=== PATIENT | female | born 1940 | race Caucasian/White ===

== ENCOUNTER 2018-10-18 16:27 | Inpatient (IN) ==
[2018-10-18] MEDS ORDERED: CEFEPIME HCL 1 GM/100 ML BAG IV ONE ×2 (16:35→16:39)
[2018-10-18] MEDS ORDERED: ACETAMINOPHEN 325 MG TABLET PO ONE (16:39)
--- NOTE | 2018-10-18 16:44 | ERNOTE ---
ER Female HPI Date of Service: 10/18/18 Stated Complaint: sick Time Seen by Provider: 10/18/18 16:34 Source: patient, EMS Immunizations: IMMUNIZATION HX History of Influenza Vaccine No Hx Pneumococcal Vaccination No Allergies/Adverse Reactions: Allergies amoxicillin [Amoxicillin] Allergy (Verified 10/18/18 18:37) Itching rash estradiol [From Estraderm] Allergy (Verified 10/18/18 18:37) Hives rash levofloxacin [From Levaquin] Allergy (Verified 10/18/18 18:37) Itching ciprofloxacin [From Cipro] Adverse Reaction (Severe, Verified 10/18/18 18:37) Dilerium acute delirium ciprofloxacin HCl [From Cipro] Adverse Reaction (Severe, Verified 10/18/18 18:37) Delirium acute delirium oxycodone [Oxycodone] Adverse Reaction (Severe, Verified 10/18/18 18:37) Delerium acute delirium lisinopril Adverse Reaction (Verified 10/18/18 18:37) Cough cough Home Medications: HOME MEDICATIONS Aspirin [Aspirin Enteric Coated] 81 mg PO DAILY 07/21/13 [Last Taken Unknown] Furosemide [Lasix] 40 mg PO DAILY 10/29/17 [Last Taken Unknown] Losartan Potassium [Cozaar] 50 mg PO DAILY 10/29/17 [Last Taken Unknown] Potassium Chloride [Klor-Con 10] 30 meq PO DAILY 10/29/17 [Last Taken Unknown] metFORMIN HCL [Metformin HCl] 500 mg PO HS 10/29/17 [Last Taken Unknown] lancets 28 gauge See Dose Instructions .ROUTE .MEDSUPPLY #100 ea 04/20/18 [Last Taken Unknown] fluoxetine 40 mg capsule 40 mg PO DAILY #30 cap 06/01/18 [Last Taken Unknown] simvastatin 40 mg tablet 40 mg PO HS #90 tab 06/30/18 [Last Taken Unknown] meloxicam 15 mg tablet 15 mg PO DAILY #30 tab 07/10/18 [Last Taken Unknown] omeprazole 40 mg capsule,delayed release 40 mg PO DAILY #30 cap 07/10/18 [Last Taken Unknown] triamcinolone acetonide 0.5 % topical cream 1 applic TP BID #15 g 07/10/18 [Last Taken Unknown] zolpidem 10 mg tablet 10 mg PO HS #30 tab 07/29/18 [Last Taken Unknown] solifenacin 10 mg tablet 10 mg PO DAILY #30 tab 10/19/18 [Last Taken Unknown] - History of Present Illness Narrative: This patient is a 78-year-old female who is here with fever and urinary symptoms. She said that she has not felt like herself for the past 2 days. She has had pressure when she urinates. Her urine has been dark. She feels feverish and her temperature is 103.2 in the ambulance. Her said that she seemed disoriented. She was noted to be tachycardic. She is diabetic and her blood sugar was 187 in the annual. She denies cough or cold symptoms. She has no nausea. She vomited yesterday. She denies diarrhea. She has no rash. Review of Systems - Review of Systems Constitutional: Present: fever, chills, weakness, malaise EYE: Absent: vision changes ENT: Absent: ear pain, nose congestion, nasal drainage, sore throat Respiratory: Absent: shortness of breath, cough Cardiology: Absent: chest pain, palpitations, syncope Gastrointestinal/Abdominal: Present: vomiting. Absent: nausea, diarrhea, constipation, abdominal pain Genitourinary: Present: See HPI Musculoskeletal: Present: no symptoms reported Skin: Absent: rash Neurological: Absent: anxiety, depressed, headache, dizziness/light-headedness Endocrine: Present: other - She has diabetic Hematologic/Lymphatic: Present: other - No active bleeding Psych: Absent: anxiety, depressed Medical History (Last Reviewed 10/18/18 @ 16:43 by Arsen Leiva MD) CHF (congestive heart failure) Callus of foot Onset Date: ~02/04/18 Diabetes mellitus, type II Heart murmur Hyperlipidemia Hypertension Mitral and aortic regurgitation Onset Date: 06/2012 Obesity Renal insufficiency Skin lesion of left lower extremity Onset Date: ~02/04/18 Stress bladder incontinence, female Toenail deformity Onset Date: ~02/04/18 Ventricular hypertrophy Surgical History: Surgical History (Last Reviewed 10/18/18 @ 16:43 by Arsen Leiva MD) History of cataract surgery Onset Date: 2007 Right 11/2007 Left 10/2007 History of colonoscopy Onset Date: 11/17/17 History of knee replacement procedure of left knee Onset Date: 07/2013 Dr. Burris History of knee replacement procedure of right knee Onset Date: 2008 Dr. Ramirez History of ovarian cystectomy Onset Date: 1961 S/P tonsillectomy Onset Date: ~1946 Family History: Family History (Last Updated 10/18/18 @ 20:09 by Concetta Fontana RN) Father Cancer Lung Cancer Mother No known health problems Social History: Preferred Language Cypriot Do you have any roman catholic or No cultural preference? Smoking Status Never smoker Abuse History No History of abuse Psych History No pertinent hx Alcohol Use none Drug Use none (Last Updated 05/20/18 @ 13:31 by Concetta Vale DPM) No Social History Section defined Physical Exam - Physical Exam General Appearance: Present: wd/wn, alert, no apparent distress Head Exam: Present: normal inspection, no evidence of injury Eye Exam: Normal inspection: bilateral Ears, Nose, Throat: Present: normal ENT inspection, normal pharynx Neck: Present: normal inspection, nontender. Absent: lymphadenopathy (R), lymphadenopathy (L) Respiratory: Present: no respiratory distress, normal breath sounds, no accessory muscle use, lungs clear Cardiovascular/Chest: Present: no murmur, normal peripheral pulses, tachycardia Gastrointestinal/Abdominal: Present: normal bowel sounds, nondistended, soft, no organomegaly, tenderness - Mild suprapubic tenderness. Back Exam: Present: normal inspection, normal range of motion Extremity Exam: Present: normal inspection, non-tender, no edema Neurological Exam: Present: alert, oriented, normal mood/affect, no motor/sensory deficits Skin Exam: Present: normal color, warm/dry Progress - Date and Time Seen: Date and Time: 10/18/18 18:04 I reviewed the labs with the patient and her . I spoke with Dr. Meier, and will admit the patient. - Results and Orders Patient's Lab Results:: I have reviewed the patient's lab results. Results and Orders: Laboratory Tests 10/18/18 10/18/18 10/18/18 16:39 16:43 16:43 WBC 19.1 H Hgb 8.8 L Hct 29.3 L Plt Count 262 Immature Gran % (Auto) 1.00 H Neutrophils % 85.0 H Lymphocytes % 2.8 L Monocytes % 10.9 H Plasma Sodium 135 Potassium 3.5 Chloride 100 Carbon Dioxide 20.3 L Anion Gap 16.2 H BUN 16 Creatinine 1.26 Random Glucose 207 H Total Bilirubin 2.2 H AST 154 H ALT 188 H Alkaline Phosphatase 357 H Total Protein 6.0 L Albumin 2.4 L Urine Color Yellow Urine Appearance Slightly cloudy Urine pH 6.0 Ur Specific [place] 1.025 Urine Protein 100 H Urine Glucose (UA) Negative Urine Ketones Negative Urine Blood 150 H Urine Nitrate Negative Urine Bilirubin 1 H Urine Ictotest Positive H Prot Sulfosalicylic Acd 4+ H Urine Urobilinogen 8 H Ur Leukocyte Esterase 100 H Urine RBC 5-10 H Urine WBC >50 H Ur Epithelial Cells None seen Urine Bacteria 4+ H Urine Culture Comments Culture to follow - Vital Signs Patient's Vital Signs:: I have reviewed the patient's vital signs. Vital Signs: Vital Signs 10/18/18 16:27 Temperature 39.6 C H Pulse Rate 125 H Respiratory Rate 22 H Blood Pressure 150/81 H O2 Sat by Pulse Oximetry 95 - Progress/Reassessment Chief Complaint: Genitourinary Problem Departure Clinical Impression: Pyelonephritis, Elevated LFTs, Anemia - Departure Disposition: Still a patient Condition: Stable
[2018-10-18] MEDS: NORMAL SALINE 1,000 ML IV SCH ×3 (17:00→22:48)
[2018-10-18 17:01] LABS: Hematocrit 29.3 % (37.0-47.0); Hemoglobin 8.8 gm/dL (12.5-16.0); Mean Cell Volume 69.8 fl (78-100); Mean Platelet Volume 9.8 fl (8-12.5); Neutrophil # 16.2 K/mm3 (1.3-6.0); Platelet Count 262 K/mm3 (150-450); Red Cell Distribution Width 18.6 % (11.5-14.0); White Blood Count 19.1 K/mm3 (4.0-10.5)
[2018-10-18 17:04] LABS: Total Cells Counted 100
[2018-10-18 17:23] LABS: Albumin * 2.4 gm/dl (3.4-5.0); Anion Gap 16.2 mmol/L (6.8-13.8); BUN/Creatinine Ratio 12.7 (9.0-21.6); Bilirubin, Total 2.2 mg/dL (0.0-1.1); Ca. Corrected For Albumin 9.4 mg/dL (8.4-10.2); Calcium * 8.4 mg/dL (7.9-10.9); Carbon Dioxide 20.3 mmol/L (24-32.6); Potassium 3.5 mmol/L (3.4-4.6)
[2018-10-18 17:24] LABS: Anisocytosis 2+; Band 1 % (0-2.0); Lymphocyte 8 % (20-51); Monocyte 9 % (0-9); Neutrophil 82 % (42-75); Neutrophil # 15.7 K/mm3 (1.3-6.0); Platelet Estimate Normal (NORMAL)
[2018-10-18 17:26] LABS: Hypochromia 1+
[2018-10-18 17:28] LABS: Ovalocytes 1+
[2018-10-18 17:32] LABS: Urine Appearance Slightly Cloudy (CLEAR); Urine Bilirubin 1 mg/dl (NEGATIVE); Urine Blood 150 /ul (NEGATIVE); Urine Color Yellow; Urine Ketone Negative (NEGATIVE); Urine Protein 100 mg/dL (NEGATIVE); Urine Specific Gravity 1.025 SP.GR. (1.005-1.010)
[2018-10-18 17:33] LABS: Urine Bacteria 4+; Urine Nitrite Negative (NEGATIVE); Urine Urobilinogen 8 EU/dl (NORMAL); Urine WBC >50 /hpf (0-5)
[2018-10-18] MEDS ORDERED: CEFEPIME HCL 2 GM in DEXTROSE 5 % IN WATER 100 ML IV ONE ×2 (17:45)
[2018-10-18] MEDS: NORMAL SALINE 1,000 ML IV PRN (20:27)
[2018-10-18] MEDS ORDERED: ONDANSETRON 8 MG TAB.RAPDIS PO PRN (20:34)
--- NOTE | 2018-10-18 20:56 | HP ---
Chief Complaint - Chief Complaint Date of Service: 10/18/18 Time of Service: 19:45 Chief Complaint: Fever, dysuria, mental confusion. History of Present Illness: Barbie Burns is a 78-year-old female who presented to the emergency room after episode of confusion high fever of 103.8 and dysuria. Evaluation in emergency room reveals presence of a urinary tract infection, leukocytosis, and a predominance of neutrophils. Her liver enzymes are elevated. Cause is unknown. She is started on IV antibiotics and IV fluids of normal saline at 125 mL per hour continuous. She is in no distress at time of my exam. With rehydration and antipyretics her mental status has improved back to normal baseline. Medical History (Last Reviewed 10/18/18 @ 20:07 by Concetta Fontana RN) CHF (congestive heart failure) Callus of foot Onset Date: ~02/04/18 Diabetes mellitus, type II Heart murmur Hyperlipidemia Hypertension Mitral and aortic regurgitation Onset Date: 06/2012 Obesity Renal insufficiency Skin lesion of left lower extremity Onset Date: ~02/04/18 Stress bladder incontinence, female Toenail deformity Onset Date: ~02/04/18 Ventricular hypertrophy Surgical History: Surgical History (Last Reviewed 10/18/18 @ 20:07 by Concetta Fontana RN) History of cataract surgery Onset Date: 2007 Right 11/2007 Left 10/2007 History of colonoscopy Onset Date: 11/17/17 History of knee replacement procedure of left knee Onset Date: 07/2013 Dr. Burris History of knee replacement procedure of right knee Onset Date: 2008 Dr. Ramirez History of ovarian cystectomy Onset Date: 1961 S/P tonsillectomy Onset Date: ~1946 Family History: Family History (Last Updated 10/18/18 @ 20:09 by Concetta Fontana RN) Father Cancer Lung Cancer Mother No known health problems Social History: Patient Lives/Resources With Spouse Utilized Occupation retired Preferred Language Bulgarian Do you have any synagogue or No cultural preference? Smoking Status Never smoker Have you smoked in the past 12 No months Do you dip or chew tobacco No Abuse History No History of abuse Psych History No pertinent hx Alcohol Use none Drug Use none (Last Updated 05/20/18 @ 13:31 by Concetta Vale DPM) No Social History Section defined Review Of Systems (GEN) - Review of Systems Generalized/Overall Review: Present: Weakness EENTM: Present: No Symptoms Reported Respiratory: Present: No Symptoms Reported Cardiac: Present: No Symptoms Reported Abdominal: Present: Other - Suprapubic pressure and discomfort Genitourinary: Present: No Symptoms Reported, Urgency, Frequency, Dysuria Musculoskeletal: Present: No Symptoms Reported Neurological: Present: Other - Briefly confused today but improved with IV fluids and antipyretics. Skin: Present: No Symptoms Reported Endocrine: Present: No Symptoms Reported Misc: All systems neg except as marked Immunizations: IMMUNIZATION HX History of Influenza Vaccine No Hx Pneumococcal Vaccination No Allergies/Adverse Reactions: Allergies Allergy/AdvReac Type Severity Reaction Status Date / Time amoxicillin [Amoxicillin] Allergy Itching Verified 10/18/18 18:37 estradiol [From Estraderm] Allergy Hives Verified 10/18/18 18:37 levofloxacin [From Levaquin] Allergy Itching Verified 10/18/18 18:37 ciprofloxacin [From Cipro] AdvReac Severe Dilerium Verified 10/18/18 18:37 ciprofloxacin HCl AdvReac Severe Delirium Verified 10/18/18 18:37 [From Cipro] oxycodone [Oxycodone] AdvReac Severe Delerium Verified 10/18/18 18:37 lisinopril AdvReac Cough Verified 10/18/18 18:37 Home Medications: HOME MEDICATIONS Aspirin [Aspirin Enteric Coated] 81 mg PO DAILY 07/21/13 [Last Taken Unknown] Furosemide [Lasix] 40 mg PO DAILY 10/29/17 [Last Taken Unknown] Losartan Potassium [Cozaar] 50 mg PO DAILY 10/29/17 [Last Taken Unknown] Potassium Chloride [Klor-Con 10] 30 meq PO DAILY 10/29/17 [Last Taken Unknown] Solifenacin Succinate [Vesicare] 10 mg PO DAILY 10/29/17 [Last Taken Unknown] metFORMIN HCL [Metformin HCl] 500 mg PO HS 10/29/17 [Last Taken Unknown] lancets 28 gauge See Dose Instructions .ROUTE .MEDSUPPLY #100 ea 04/20/18 [Last Taken Unknown] fluoxetine 40 mg capsule 40 mg PO DAILY #30 cap 06/01/18 [Last Taken Unknown] simvastatin 40 mg tablet 40 mg PO HS #90 tab 06/30/18 [Last Taken Unknown] meloxicam 15 mg tablet 15 mg PO DAILY #30 tab 07/10/18 [Last Taken Unknown] omeprazole 40 mg capsule,delayed release 40 mg PO DAILY #30 cap 07/10/18 [Last Taken Unknown] triamcinolone acetonide 0.5 % topical cream 1 applic TP BID #15 g 07/10/18 [Last Taken Unknown] zolpidem 10 mg tablet 10 mg PO HS #30 tab 07/29/18 [Last Taken Unknown] Exam - Exam Vital Signs: Vital Signs - Last Taken Temp 37.3 C 10/18/18 19:41 Pulse 106 H 10/18/18 19:41 Resp 22 H 10/18/18 19:41 BP 130/47 10/18/18 19:41 Pulse Ox 92 L 10/18/18 19:41 Constitutional: Present: Alert, Oriented x3, Cooperative, Well developed, Well nourished, No distress ENT Exam: Present: normal ENT inspection, hearing grossly normal, pharynx normal, TMs normal Eye Exam: bilateral eye: normal inspection, PERRL, EOMI Neck: Present: non-tender Back Exam: Present: normal inspection Breasts: Present: Exam deferred Respiratory: Present: chest non-tender Cardiovascular/Chest: Present: normal peripheral pulses, regular rate, rhythm, no chest tenderness, no edema, no gallop, no JVD, no murmur, no rub Peripheral Pulses: carotid (R): 2+, carotid (L): 2+, radial (R): 2+, radial (L): 2+ Abdomen: Present: Normal bowel sounds, soft, nondistended, no rebound tende rness, suprapubic tenderness /Rectal: Present: Exam deferred Extremity: Present: normal range of motion, non-tender, normal inspection, no pedal edema, no calf tenderness, normal capillary refill Skin Exam: Present: normal color, warm/dry, no cyanosis Lymphatic: Present: no adenopathy Neurologic: Present: turkey cleaner II-XII nml as tested Appearance: Present: appropriate appearance Eye contact: Present: cooperative, good eye contact, normal speech Thoughts: Present: normal thought pattern, no apparent hallucination Diagnostic Studies: Abnormal Lab Results 10/18/18 10/18/18 10/18/18 Range/Units 16:39 16:43 16:43 WBC 19.1 H (4.0-10.5) K/mm3 Hgb 8.8 L (12.5-16.0) gm/dL Hct 29.3 L (37.0-47.0) % MCV 69.8 L (78-100) fl MCH 21.0 L (27-31) pg MCHC 30.0 L (32-36) g/dl RDW 18.6 H (11.5-14.0) % Immature Gran % (Auto) 1.00 H (0.001-0.429) % Immature Gran # (Auto) 0.20 H (0.000-0.0310) K/mm3 Neutrophils % 85.0 H (42-75.0) % Neutrophils % (Manual) 82 H (42-75) % Lymphocytes % 2.8 L (20-51) % Lymphocytes % (Manual) 8 L (20-51) % Monocytes % 10.9 H (0.0-9) % Neutrophils # 16.2 H (1.3-6.0) K/mm3 Neutrophils # (Manual) 15.7 H (1.3-6.0) K/mm3 Lymphocytes # 0.53 L (1.5-3.5) k/mm3 Monocytes # 2.1 H (0.0-1.0) k/mm3 Monocytes # (Manual) 1.7 H (0.0-1.0) k/mm3 Carbon Dioxide 20.3 L (24-32.6) mmol/L Anion Gap 16.2 H (6.8-13.8) mmol/L Est GFR (Non-Af Amer) 44 L (60-130) mL/min Random Glucose 207 H (70-110) mg/dL Total Bilirubin 2.2 H (0.0-1.1) mg/dL AST 154 H (0-48) U/L ALT 188 H (19-67) U/L Alkaline Phosphatase 357 H (50-170) U/L Total Protein 6.0 L (6.2-8.2) gm/dL Albumin 2.4 L (3.4-5.0) gm/dl Urine Protein 100 H (NEGATIVE) mg/dL Urine Blood 150 H (NEGATIVE) /ul Urine Bilirubin 1 H (NEGATIVE) mg/dl Urine Ictotest Positive H (NEGATIVE) Prot Sulfosalicylic Acd 4+ H (0) mg/dL Urine Urobilinogen 8 H (NORMAL) EU/dl Ur Leukocyte Esterase 100 H (NEGATIVE) /ul Urine RBC 5-10 H (0-5) /hpf Urine WBC >50 H (0-5) /hpf Urine Bacteria 4+ H (NONE) Laboratory Results WBC 19.1 K/mm3 (4.0-10.5) H 10/18/18 16:43 RBC 4.20 M/mm3 (4.2-5.4) 10/18/18 16:43 Hgb 8.8 gm/dL (12.5-16.0) L 10/18/18 16:43 Hct 29.3 % (37.0-47.0) L 10/18/18 16:43 MCV 69.8 fl (78-100) L 10/18/18 16:43 MCH 21.0 pg (27-31) L 10/18/18 16:43 MCHC 30.0 g/dl (32-36) L 10/18/18 16:43 RDW 18.6 % (11.5-14.0) H 10/18/18 16:43 Plt Count 262 K/mm3 (150-450) 10/18/18 16:43 MPV 9.8 fl (8-12.5) 10/18/18 16:43 Immature Gran % (Auto) 1.00 % (0.001-0.429) H 10/18/18 16:43 Immature Gran # (Auto) 0.20 K/mm3 (0.000-0.0310) H 10/18/18 16:43 Neutrophils % 85.0 % (42-75.0) H 10/18/18 16:43 Neutrophils % (Manual) 82 % (42-75) H 10/18/18 16:43 Band Neuts % (Manual) 1 % (0-2.0) 10/18/18 16:43 Lymphocytes % 2.8 % (20-51) L 10/18/18 16:43 Lymphocytes % (Manual) 8 % (20-51) L 10/18/18 16:43 Monocytes % 10.9 % (0.0-9) H 10/18/18 16:43 Monocytes % (Manual) 9 % (0-9) 10/18/18 16:43 Eosinophils % 0.0 % (0.0-3.0) 10/18/18 16:43 Basophils % 0.3 % (0.0-1.0) 10/18/18 16:43 Nucleated RBC % 0.0 k/mm3 (0-1) 10/18/18 16:43 Neutrophils # 16.2 K/mm3 (1.3-6.0) H 10/18/18 16:43 Neutrophils # (Manual) 15.7 K/mm3 (1.3-6.0) H 10/18/18 16:43 Lymphocytes # 0.53 k/mm3 (1.5-3.5) L 10/18/18 16:43 Lymphocytes # (Manual) 1.5 k/mm3 (1.5-3.5) 10/18/18 16:43 Monocytes # 2.1 k/mm3 (0.0-1.0) H 10/18/18 16:43 Monocytes # (Manual) 1.7 k/mm3 (0.0-1.0) H 10/18/18 16:43 Eosinophils # 0.0 k/mm3 (0.0-0.7) 10/18/18 16:43 Absolute Basophils 0.1 k/mm3 (0.0-0.1) 10/18/18 16:43 Platelet Estimate Normal (NORMAL) 10/18/18 16:43 Hypochromasia 1+ 10/18/18 16:43 Anisocytosis 2+ 10/18/18 16:43 Ovalocytes 1+ 10/18/18 16:43 Sodium 133 mmol/L (132-142) 10/18/18 16:43 Plasma Sodium 135 mmol/L (130-142) 10/18/18 16:43 Potassium 3.5 mmol/L (3.4-4.6) 10/18/18 16:43 Chloride 100 mmol/L (97-106) 10/18/18 16:43 Carbon Dioxide 20.3 mmol/L (24-32.6) L 10/18/18 16:43 Anion Gap 16.2 mmol/L (6.8-13.8) H 10/18/18 16:43 BUN 16 mg/dL (3-23) 10/18/18 16:43 Creatinine 1.26 mg/dL (0.4-1.4) 10/18/18 16:43 Est GFR (Non-Af Amer) 44 mL/min (60-130) L 10/18/18 16:43 BUN/Creatinine Ratio 12.7 (9.0-21.6) 10/18/18 16:43 Random Glucose 207 mg/dL (70-110) H 10/18/18 16:43 Lactic Acid, Venous 1.5 mmol/L (0.4-2.0) 10/18/18 16:43 Calcium 8.4 mg/dL (7.9-10.9) 10/18/18 16:43 Calcium Adj for Albumin 9.4 mg/dL (8.4-10.2) 10/18/18 16:43 Total Bilirubin 2.2 mg/dL (0.0-1.1) H 10/18/18 16:43 AST 154 U/L (0-48) H 10/18/18 16:43 ALT 188 U/L (19-67) H 10/18/18 16:43 Alkaline Phosphatase 357 U/L (50-170) H 10/18/18 16:43 Total Protein 6.0 gm/dL (6.2-8.2) L 10/18/18 16:43 Albumin 2.4 gm/dl (3.4-5.0) L 10/18/18 16:43 Urine Color Yellow 10/18/18 16:39 Urine Appearance Slightly cloudy (CLEAR) 10/18/18 16:39 Urine pH 6.0 pH (5.0-7.0) 10/18/18 16:39 Ur Specific [place] 1.025 SP.GR. (1.005-1.010) 10/18/18 16:39 Urine Protein 100 mg/dL (NEGATIVE) H 10/18/18 16:39 Urine Glucose (UA) Negative mg/dL (NEGATIVE) 10/18/18 16:39 Urine Ketones Negative mg/dL (NEGATIVE) 10/18/18 16:39 Urine Blood 150 /ul (NEGATIVE) H 10/18/18 16:39 Urine Nitrate Negative (NEGATIVE) 10/18/18 16:39 Urine Bilirubin 1 mg/dl (NEGATIVE) H 10/18/18 16:39 Urine Ictotest Positive (NEGATIVE) H 10/18/18 16:39 Prot Sulfosalicylic Acd 4+ mg/dL (0) H 10/18/18 16:39 Urine Urobilinogen 8 EU/dl (NORMAL) H 10/18/18 16:39 Ur Leukocyte Esterase 100 /ul (NEGATIVE) H 10/18/18 16:39 Urine RBC 5-10 /hpf (0-5) H 10/18/18 16:39 Urine WBC >50 /hpf (0-5) H 10/18/18 16:39 Ur Epithelial Cells None seen /hpf (0-5) 10/18/18 16:39 Urine Bacteria 4+ (NONE) H 10/18/18 16:39 Urine Culture Comments Culture to follow 10/18/18 16:39 Assessment/Plan - Narrative Narrative: 1. IV antibiotics 2. IV fluids 3. Antipyretics 4. Abdominal ultrasound tomorrow morning single organliver 5. Place on telemetry through the night 6. Had Tylenol and Zofran to her when necessary meds 7. I'll notify Dr. Africa Villarreal tomorrow morning of her admission. - Assessment/Plan (1) Pyelonephritis Problem: Acute (2) Altered mental status Problem: Resolved (3) Fever and chills Problem: Acute (4) Elevated LFTs Problem: Acute
[2018-10-18] MEDS: TRIAMCINOLONE ACETONIDE 15 APPL TUBE TP SCH (22:52)
[2018-10-18] MEDS: ZOLPIDEM TARTRATE 10 MG TABLET PO SCH (22:52)
[2018-10-19] MEDS: ACETAMINOPHEN 500 MG TABLET PO PRN ×4 (01:08→23:08)
[2018-10-19] MEDS ORDERED: FUROSEMIDE 10 MG/ML VIAL IV ONE (01:17)
[2018-10-19] MEDS: NORMAL SALINE 1,000 ML IV PRN (04:41)
[2018-10-19 05:51] LABS: Hematocrit 28.3 % (37.0-47.0); Hemoglobin 8.5 gm/dL (12.5-16.0); Mean Cell Volume 69.5 fl (78-100); Mean Corpuscular Hemoglobin 20.9 pg (27-31); Mean Platelet Volume 10.6 fl (8-12.5); Platelet Count 284 K/mm3 (150-450); Red Blood Count 4.07 M/mm3 (4.2-5.4); Red Cell Distribution Width 18.6 % (11.5-14.0); White Blood Count 18.9 K/mm3 (4.0-10.5)
[2018-10-19 06:00] LABS: Total Cells Counted 100
[2018-10-19 06:04] LABS: Albumin * 2.3 gm/dl (3.4-5.0); Anion Gap 15.2 mmol/L (6.8-13.8); BUN/Creatinine Ratio 11.6 (9.0-21.6); Bilirubin, Total 2.2 mg/dL (0.0-1.1); Ca. Corrected For Albumin 9.2 mg/dL (8.4-10.2); Calcium * 8.2 mg/dL (7.9-10.9); Carbon Dioxide 20.8 mmol/L (24-32.6); Total Protein 5.9 gm/dL (6.2-8.2)
[2018-10-19 06:21] LABS: Band 3 % (0-2.0); Hypochromia 1+; Lymphocyte 5 % (20-51); Microcytosis 1+; Monocyte 5 % (0-9); Neutrophil 87 % (42-75); Neutrophil # 16.4 K/mm3 (1.3-6.0); Platelet Estimate Normal (NORMAL)
[2018-10-19] MEDS ORDERED: OMEPRAZOLE 20 MG CAPSULE.SA PO SCH (07:00)
[2018-10-19] MEDS ORDERED: POTASSIUM CHLORIDE 10 MEQ in NORMAL SALINE 1,000 ML IV PRN ×2 (08:35→08:45)
[2018-10-19] MEDS: PANTOPRAZOLE SODIUM 40 MG TABLET.EC PO SCH (08:42)
[2018-10-19] MEDS: TRIAMCINOLONE ACETONIDE 15 APPL TUBE TP SCH ×2 (08:51→20:55)
[2018-10-19] MEDS: CEFEPIME HCL 1 GM in DEXTROSE 5 % IN WATER 100 ML IV SCH ×4 (09:51→20:57)
[2018-10-19] MEDS: FUROSEMIDE 40 MG TABLET PO SCH (09:54)
[2018-10-19] MEDS: LOSARTAN POTASSIUM 50 MG TABLET PO SCH (09:55)
[2018-10-19] MEDS: ASPIRIN 81 MG TABLET.DR PO SCH (09:55)
[2018-10-19] MEDS: POTASSIUM CHLORIDE 10 MEQ TABLET.SA PO SCH (09:55)
[2018-10-19] MEDS: FLUoxetine HCL 20 MG CAPSULE PO SCH (09:55)
[2018-10-19] MEDS: POTASSIUM CHLORIDE 10 MEQ in NORMAL SALINE 1,000 ML IV SCH ×2 (10:00→20:34)
[2018-10-19] MEDS: SOLIFENACIN SUCCINATE 10 MG TABLET PO SCH (10:06)
--- NOTE | 2018-10-19 10:58 | PN ---
Subjective - Date and Time Seen Date: 10/19/18 Time: 08:35 Subjective Narrative: Barbie Burns is a 78-year-old female admitted yesterday with pyelonephritis, abnormal elevated liver function tests, hyperpyrexia, and temporary altered mental status which improved with rehydration and reduced fever. She is afebrile this morning. She may be feeling some better. She denies flank pain but has some suprapubic pressure and discomfort. Her blood cultures have grown out a gram-negative bacillus and she is on cefepime. We'll await sensitivity before changing antibiotics. Her white count is 18,900 which is only down from 19,100 on admission. The differential is essentially unchanged. Her liver function studies continue to be high. Her potassium has dropped to 3.0. Dr. Africa Villarreal changed her IV fluids to include potassium. She is on losartan which is potassium sparing and I will add spironolactone 50 mg once daily. Recheck CBC and CMP again tomorrow morning. Objective - Review of Systems Generalized/Overall Review: Reports: Weakness, Malaise EENTM: Reports: No Symptoms Reported Respiratory: Reports: Shortness of Breath Cardiac: Reports: No Symptoms Reported Abdominal: Reports: No Symptoms Reported Genitourinary Symptoms: Reports: Burning, Urgency, Frequency, Dysuria Neurological: Reports: No Symptoms Reported Skin: Reports: No Symptoms Reported Endocrine: Reports: No Symptoms Reported Misc: All systems neg except as marked - Vitals Vitals: Last Vital Signs Temp 36 C 10/19/18 09:00 Pulse 109 H 10/19/18 09:55 Resp 38 H 10/19/18 09:00 BP 128/71 10/19/18 09:55 Pulse Ox 109 H 10/19/18 09:00 - Abnormal Lab Findings Abnormal Lab Findings: Abnormal Lab Results 10/18/18 10/18/18 10/18/18 Range/Units 16:39 16:43 16:43 WBC 19.1 H (4.0-10.5) K/mm3 RBC (4.2-5.4) M/mm3 Hgb 8.8 L (12.5-16.0) gm/dL Hct 29.3 L (37.0-47.0) % MCV 69.8 L (78-100) fl MCH 21.0 L (27-31) pg MCHC 30.0 L (32-36) g/dl RDW 18.6 H (11.5-14.0) % Immature Gran % (Auto) 1.00 H (0.001-0.429) % Immature Gran # (Auto) 0.20 H (0.000-0.0310) K/mm3 Neutrophils % 85.0 H (42-75.0) % Neutrophils % (Manual) 82 H (42-75) % Band Neuts % (Manual) (0-2.0) % Lymphocytes % 2.8 L (20-51) % Lymphocytes % (Manual) 8 L (20-51) % Monocytes % 10.9 H (0.0-9) % Neutrophils # 16.2 H (1.3-6.0) K/mm3 Neutrophils # (Manual) 15.7 H (1.3-6.0) K/mm3 Lymphocytes # 0.53 L (1.5-3.5) k/mm3 Lymphocytes # (Manual) (1.5-3.5) k/mm3 Monocytes # 2.1 H (0.0-1.0) k/mm3 Monocytes # (Manual) 1.7 H (0.0-1.0) k/mm3 Potassium (3.4-4.6) mmol/L Carbon Dioxide 20.3 L (24-32.6) mmol/L Anion Gap 16.2 H (6.8-13.8) mmol/L Creatinine (0.4-1.4) mg/dL Est GFR (Non-Af Amer) 44 L (60-130) mL/min Random Glucose 207 H (70-110) mg/dL Total Bilirubin 2.2 H (0.0-1.1) mg/dL AST 154 H (0-48) U/L ALT 188 H (19-67) U/L Alkaline Phosphatase 357 H (50-170) U/L Total Protein 6.0 L (6.2-8.2) gm/dL Albumin 2.4 L (3.4-5.0) gm/dl Lipase (73-393) U/L Urine Protein 100 H (NEGATIVE) mg/dL Urine Blood 150 H (NEGATIVE) /ul Urine Bilirubin 1 H (NEGATIVE) mg/dl Urine Ictotest Positive H (NEGATIVE) Prot Sulfosalicylic Acd 4+ H (0) mg/dL Urine Urobilinogen 8 H (NORMAL) EU/dl Ur Leukocyte Esterase 100 H (NEGATIVE) /ul Urine RBC 5-10 H (0-5) /hpf Urine WBC >50 H (0-5) /hpf Urine Bacteria 4+ H (NONE) 10/19/18 10/19/18 Range/Units 05:10 05:10 WBC 18.9 H (4.0-10.5) K/mm3 RBC 4.07 L (4.2-5.4) M/mm3 Hgb 8.5 L (12.5-16.0) gm/dL Hct 28.3 L (37.0-47.0) % MCV 69.5 L (78-100) fl MCH 20.9 L (27-31) pg MCHC 30.0 L (32-36) g/dl RDW 18.6 H (11.5-14.0) % Immature Gran % (Auto) (0.001-0.429) % Immature Gran # (Auto) (0.000-0.0310) K/mm3 Neutrophils % (42-75.0) % Neutrophils % (Manual) 87 H (42-75) % Band Neuts % (Manual) 3 H (0-2.0) % Lymphocytes % (20-51) % Lymphocytes % (Manual) 5 L (20-51) % Monocytes % (0.0-9) % Neutrophils # (1.3-6.0) K/mm3 Neutrophils # (Manual) 16.4 H (1.3-6.0) K/mm3 Lymphocytes # (1.5-3.5) k/mm3 Lymphocytes # (Manual) 0.9 L (1.5-3.5) k/mm3 Monocytes # (0.0-1.0) k/mm3 Monocytes # (Manual) (0.0-1.0) k/mm3 Potassium 3.0 L (3.4-4.6) mmol/L Carbon Dioxide 20.8 L (24-32.6) mmol/L Anion Gap 15.2 H (6.8-13.8) mmol/L Creatinine 1.46 H (0.4-1.4) mg/dL Est GFR (Non-Af Amer) 37 L (60-130) mL/min Random Glucose 187 H (70-110) mg/dL Total Bilirubin 2.2 H (0.0-1.1) mg/dL AST 108 H (0-48) U/L ALT 162 H (19-67) U/L Alkaline Phosphatase 348 H (50-170) U/L Total Protein 5.9 L (6.2-8.2) gm/dL Albumin 2.3 L (3.4-5.0) gm/dl Lipase 28 L (73-393) U/L Urine Protein (NEGATIVE) mg/dL Urine Blood (NEGATIVE) /ul Urine Bilirubin (NEGATIVE) mg/dl Urine Ictotest (NEGATIVE) Prot Sulfosalicylic Acd (0) mg/dL Urine Urobilinogen (NORMAL) EU/dl Ur Leukocyte Esterase (NEGATIVE) /ul Urine RBC (0-5) /hpf Urine WBC (0-5) /hpf Urine Bacteria (NONE) - Exam Constitutional: Present: Alert, Oriented x3, Cooperative, Well developed, Well nourished, Mild distress ENT Exam: Present: normal ENT inspection, hearing grossly normal, pharynx normal Neck: Present: non-tender, full range of motion, supple, normal inspection, trachea midline Breasts: Present: Exam deferred Respiratory: Present: rhonchi, wheezing, other - Mild tachypnea Cardiovascular/Chest: Present: normal peripheral pulses, regular rate, rhythm, no chest tenderness, no edema, no gallop, no JVD, no murmur, no rub. Absent: JVD Abdomen: Present: Normal bowel sounds, soft, nontender, nondistended, suprapubic tenderness /Rectal: Present: Exam deferred Extremity: Present: normal range of motion, non-tender, normal inspection, no pedal edema, no calf tenderness, normal capillary refill Skin Exam: Present: normal color, warm/dry, no cyanosis Lymphatic: Present: no adenopathy Neurologic: Present: processing tech II-XII nml as tested Appearance: Present: appropriate appearance, appropriate insight, no memory impairment Eye contact: Present: cooperative, good eye contact, normal speech Thoughts: Present: normal thought pattern, no apparent hallucination Assessment/Plan Plan Narrative: 1. Continue current therapy with notable exceptions of adding potassium to her IV fluids and adding spironolactone. 2. Repeat CBC and CMP tomorrow 3. Await culture ID and sensitivity before changing antibiotics 4. Dr. Africa Villarreal to assume management of symptoms he is available - Problems/Diagnosis (1) Pyelonephritis Problem: Acute (2) Altered mental status Problem: Resolved (3) Fever and chills Problem: Resolved (4) Elevated LFTs Problem: Acute
[2018-10-19] MEDS: SPIRONOLACTONE 25 MG TABLET PO SCH (11:12)
[2018-10-19] MEDS ORDERED: TOLTERODINE TARTRATE 4 MG CAPSULE PO SCH (11:15)
[2018-10-19] MEDS: ZOLPIDEM TARTRATE 10 MG TABLET PO SCH (22:22)
[2018-10-20 05:38] LABS: Hematocrit 27.6 % (37.0-47.0); Hemoglobin 8.1 gm/dL (12.5-16.0); Mean Cell Volume 71.7 fl (78-100); Mean Corpuscular Hgb Conc 29.3 g/dl (32-36); Mean Platelet Volume 10.5 fl (8-12.5); Neutrophil # 12.1 K/mm3 (1.3-6.0); Neutrophil % 81.2 % (42-75.0); Platelet Count 234 K/mm3 (150-450); Red Blood Count 3.85 M/mm3 (4.2-5.4); Red Cell Distribution Width 19.1 % (11.5-14.0); White Blood Count 14.9 K/mm3 (4.0-10.5)
[2018-10-20 05:41] LABS: Total Cells Counted 100
[2018-10-20 06:00] LABS: Anion Gap 14.8 mmol/L (6.8-13.8); BUN/Creatinine Ratio 14.4 (9.0-21.6); Bilirubin, Total 1.1 mg/dL (0.0-1.1); Ca. Corrected For Albumin 9.8 mg/dL (8.4-10.2); Calcium * 8.5 mg/dL (7.9-10.9); Carbon Dioxide 18.8 mmol/L (24-32.6); Potassium 3.6 mmol/L (3.4-4.6); Total Protein 5.7 gm/dL (6.2-8.2)
[2018-10-20 06:07] LABS: Band 1 % (0-2.0); Dohle Bodies 1+; Lymphocyte 13 % (20-51); Monocyte 4 % (0-9); Neutrophil 82 % (42-75); Neutrophil # 12.2 K/mm3 (1.3-6.0); Platelet Estimate Normal (NORMAL)
--- NOTE | 2018-10-20 06:50 | PN ---
Subjective - Date and Time Seen Date: 10/20/18 Time: 06:41 Subjective Narrative: I have reviewed previous blood work, urine and physician notes. Mrs. james feels better today, however in the last 24 hours she has developed cough. Looking at her SUNNY she is in positive fluid balance. There is no orthopnea or paroxysmal nocturnal dyspnea. Urine culture is growing gram-negative neck. She is not having pain. She has been up and around a little bit. Objective - Review of Systems Generalized/Overall Review: Reports: Weakness. Denies: Chills, Fever, Diaphoresis EENTM: Denies: Eye Pain, Blurred Vision Respiratory: Reports: Cough, Shortness of Breath, Wheezing. Denies: Orthopnea, Stridor Cardiac: Denies: Chest Pain, Edema Abdominal: Denies: Nausea, Vomiting, Abdominal Pain Genitourinary Symptoms: Reports: Frequency. Denies: Burning, Urgency Musculoskeletal Complaints: Reports: Other - She has subacute triggering of her left thumb. Denies: Joint Pain, Back Pain Neurological: Denies: Headache, Anxiety, Depressed Skin: Denies: Dryness, Lesions, Rash Endocrine: Denies: Intolerance to Cold, Intolerance to Heat Misc: All systems neg except as marked - Vitals Vitals: Last Vital Signs Temp 37.4 C 10/20/18 04:00 Pulse 96 10/20/18 04:00 Resp 20 10/20/18 04:00 BP 123/56 10/20/18 04:00 Pulse Ox 93 10/20/18 04:00 - Abnormal Lab Findings Abnormal Lab Findings: Abnormal Lab Results 10/19/18 10/19/18 10/20/18 Range/Units 05:10 11:50 05:34 WBC 14.9 H D (4.0-10.5) K/mm3 RBC 3.85 L (4.2-5.4) M/mm3 Hgb 8.1 L (12.5-16.0) gm/dL Hct 27.6 L (37.0-47.0) % MCV 71.7 L (78-100) fl MCH 21.0 L (27-31) pg MCHC 29.3 L (32-36) g/dl RDW 19.1 H (11.5-14.0) % Immature Gran % (Auto) 0.90 H (0.001-0.429) % Immature Gran # (Auto) 0.14 H (0.000-0.0310) K/mm3 Neutrophils % 81.2 H (42-75.0) % Neutrophils % (Manual) 82 H (42-75) % Lymphocytes % 5.8 L (20-51) % Lymphocytes % (Manual) 13 L (20-51) % Monocytes % 10.7 H (0.0-9) % Neutrophils # 12.1 H (1.3-6.0) K/mm3 Neutrophils # (Manual) 12.2 H (1.3-6.0) K/mm3 Lymphocytes # 0.86 L (1.5-3.5) k/mm3 Monocytes # 1.6 H (0.0-1.0) k/mm3 pCO2 28.1 L (32.0-45.0) mmHg pO2 80.9 L (83.0-108.0) mmHg HCO3 18.9 L (21.0-28.0) mmol/L Base Excess -4.3 L (-2.0-3.0) mmol/L Chloride (97-106) mmol/L Carbon Dioxide (24-32.6) mmol/L Anion Gap (6.8-13.8) mmol/L Est GFR (Non-Af Amer) (60-130) mL/min Random Glucose (70-110) mg/dL AST (0-48) U/L ALT (19-67) U/L Alkaline Phosphatase (50-170) U/L B-Natriuretic Peptide 1431 H (5-550) pg/mL Total Protein (6.2-8.2) gm/dL Albumin (3.4-5.0) gm/dl 10/20/18 Range/Units 05:34 WBC (4.0-10.5) K/mm3 RBC (4.2-5.4) M/mm3 Hgb (12.5-16.0) gm/dL Hct (37.0-47.0) % MCV (78-100) fl MCH (27-31) pg MCHC (32-36) g/dl RDW (11.5-14.0) % Immature Gran % (Auto) (0.001-0.429) % Immature Gran # (Auto) (0.000-0.0310) K/mm3 Neutrophils % (42-75.0) % Neutrophils % (Manual) (42-75) % Lymphocytes % (20-51) % Lymphocytes % (Manual) (20-51) % Monocytes % (0.0-9) % Neutrophils # (1.3-6.0) K/mm3 Neutrophils # (Manual) (1.3-6.0) K/mm3 Lymphocytes # (1.5-3.5) k/mm3 Monocytes # (0.0-1.0) k/mm3 pCO2 (32.0-45.0) mmHg pO2 (83.0-108.0) mmHg HCO3 (21.0-28.0) mmol/L Base Excess (-2.0-3.0) mmol/L Chloride 107 H (97-106) mmol/L Carbon Dioxide 18.8 L (24-32.6) mmol/L Anion Gap 14.8 H (6.8-13.8) mmol/L Est GFR (Non-Af Amer) 44 L (60-130) mL/min Random Glucose 118 H D (70-110) mg/dL AST 56 H (0-48) U/L ALT 111 H (19-67) U/L Alkaline Phosphatase 364 H (50-170) U/L B-Natriuretic Peptide (5-550) pg/mL Total Protein 5.7 L (6.2-8.2) gm/dL Albumin 2.0 L (3.4-5.0) gm/dl - Exam Constitutional: Present: Alert, Oriented x3, Cooperative, Well developed, Well nourished ENT Exam: Present: normal ENT inspection, hearing grossly normal Neck: Present: non-tender, full range of motion, normal inspection. Absent: lymphadenopathy (R), lymphadenopathy (L), thyromegaly Respiratory: Present: accessory muscle use, wheezing Cardiovascular/Chest: Present: regular rate, rhythm, no edema, no gallop, no JVD, no murmur Abdomen: Present: soft, nontender, nondistended /Rectal: Present: Exam deferred Extremity: Present: normal range of motion, non-tender Skin Exam: Present: normal color, warm/dry, no cyanosis Lymphatic: Present: no adenopathy Neurologic: Present: normal mood/affect, motor weakness Appearance: Present: appropriate appearance, appropriate insight, neat, no memory impairment Eye contact: Present: cooperative, good eye contact Thoughts: Present: normal thought pattern - Also noted is yesterday's ABGs. Th ey demonstrate a compensated metabolic acidosis Assessment/Plan - Problems/Diagnosis (1) Fluid overload Problem: Acute Qualifiers: Hypervolemia type: other Qualified Code(s): E87.79 - Other fluid overload Narrative: We will cut back on fluids, give her 1 IV Lasix dose even though she is taking oral Lasix every day and obtain a chest x-ray. If it appears needed, we will do ABGs in the future. (2) Compensated metabolic acidosis Problem: Acute (3) Elevated LFTs Problem: Acute (4) Pyelonephritis Problem: Acute (5) Altered mental status Problem: Resolved
[2018-10-20] MEDS ORDERED: FUROSEMIDE 10 MG/ML VIAL IV ONE (07:00)
[2018-10-20] MEDS ORDERED: ENOXAPARIN SODIUM 80 MG/0.8 ML DISP.SYRIN SC SCH (07:30)
[2018-10-20] MEDS: POTASSIUM CHLORIDE 10 MEQ in NORMAL SALINE 1,000 ML IV SCH (07:33)
[2018-10-20] MEDS: PANTOPRAZOLE SODIUM 40 MG TABLET.EC PO SCH (07:40)
[2018-10-20] MEDS: ENOXAPARIN SODIUM 40 MG/0.4 ML SYRG SC SCH (07:42)
[2018-10-20] MEDS: ACETAMINOPHEN 500 MG TABLET PO PRN (07:47)
[2018-10-20] MEDS: CEFEPIME HCL 1 GM in DEXTROSE 5 % IN WATER 100 ML IV SCH ×4 (08:44→21:00)
[2018-10-20] MEDS: SPIRONOLACTONE 25 MG TABLET PO SCH (08:46)
[2018-10-20] MEDS: ASPIRIN 81 MG TABLET.DR PO SCH (08:46)
[2018-10-20] MEDS: LOSARTAN POTASSIUM 50 MG TABLET PO SCH (08:46)
[2018-10-20] MEDS: TRIAMCINOLONE ACETONIDE 15 APPL TUBE TP SCH ×2 (08:47→20:58)
[2018-10-20] MEDS: FUROSEMIDE 40 MG TABLET PO SCH (08:48)
[2018-10-20] MEDS: FLUoxetine HCL 20 MG CAPSULE PO SCH (08:48)
[2018-10-20] MEDS: SOLIFENACIN SUCCINATE 10 MG TABLET PO SCH (08:48)
[2018-10-20] MEDS: POTASSIUM CHLORIDE 10 MEQ TABLET.SA PO SCH (08:48)
[2018-10-20] MEDS: ZOLPIDEM TARTRATE 10 MG TABLET PO SCH (22:08)
[2018-10-21] MEDS: ACETAMINOPHEN 500 MG TABLET PO PRN (03:35)
[2018-10-21 05:41] LABS: Hematocrit 26.1 % (37.0-47.0); Mean Cell Volume 68.5 fl (78-100); Mean Corpuscular Hemoglobin 20.7 pg (27-31); Mean Corpuscular Hgb Conc 30.3 g/dl (32-36); Mean Platelet Volume 10.3 fl (8-12.5); Neutrophil # 9.8 K/mm3 (1.3-6.0); Neutrophil % 77.1 % (42-75.0); Platelet Count 273 K/mm3 (150-450); Red Blood Count 3.81 M/mm3 (4.2-5.4); Red Cell Distribution Width 18.9 % (11.5-14.0); White Blood Count 12.7 K/mm3 (4.0-10.5)
[2018-10-21 06:13] LABS: Albumin * 1.9 gm/dl (3.4-5.0); Anion Gap 12.4 mmol/L (6.8-13.8); BUN/Creatinine Ratio 14.5 (9.0-21.6); Bilirubin, Total 0.6 mg/dL (0.0-1.1); Ca. Corrected For Albumin 9.9 mg/dL (8.4-10.2); Calcium * 8.5 mg/dL (7.9-10.9); Carbon Dioxide 24.1 mmol/L (24-32.6); Potassium 3.5 mmol/L (3.4-4.6); Total Protein 5.8 gm/dL (6.2-8.2)
[2018-10-21] MEDS: PANTOPRAZOLE SODIUM 40 MG TABLET.EC PO SCH (07:04)
[2018-10-21] MEDS: ENOXAPARIN SODIUM 40 MG/0.4 ML SYRG SC SCH (07:04)
[2018-10-21] MEDS: CEFEPIME HCL 1 GM in DEXTROSE 5 % IN WATER 100 ML IV SCH ×4 (09:01→22:05)
[2018-10-21] MEDS: ASPIRIN 81 MG TABLET.DR PO SCH (09:07)
[2018-10-21] MEDS: SPIRONOLACTONE 25 MG TABLET PO SCH (09:08)
[2018-10-21] MEDS: FLUoxetine HCL 20 MG CAPSULE PO SCH (09:08)
[2018-10-21] MEDS: LOSARTAN POTASSIUM 50 MG TABLET PO SCH (09:09)
[2018-10-21] MEDS: SOLIFENACIN SUCCINATE 10 MG TABLET PO SCH (09:09)
[2018-10-21] MEDS: FUROSEMIDE 40 MG TABLET PO SCH (09:10)
[2018-10-21] MEDS: TRIAMCINOLONE ACETONIDE 15 APPL TUBE TP SCH ×2 (09:11→22:06)
[2018-10-21] MEDS: POTASSIUM CHLORIDE 10 MEQ TABLET.SA PO SCH (09:11)
--- NOTE | 2018-10-21 12:18 | PN ---
Subjective - Date and Time Seen Date: 10/21/18 Time: 06:45 Subjective Narrative: She feels better. She is not nauseated and has been able to eat. She feels stronger. She is not short of breath unless she is walking. Her is present today in the room, and we all discussed these things together and answered all of their questions. He has had no fever chills or sweats. She is not having any pain. She still has a finishing frame runner. Her bowels are functioning. Objective - Review of Systems Generalized/Overall Review: Reports: Weakness, Malaise EENTM: Denies: Eye Pain, Blurred Vision Respiratory: Denies: Cough, Shortness of Breath, Orthopnea Cardiac: Denies: Chest Pain, Edema Abdominal: Denies: Nausea, Vomiting, Abdominal Pain, Constipation, Diarrhea Genitourinary Symptoms: Denies: Burning, Urgency Musculoskeletal Complaints: Denies: Joint Pain, Back Pain Neurological: Denies: Headache, Anxiety, Depressed Skin: Denies: Dryness, Lesions, Rash Endocrine: Denies: Intolerance to Cold, Intolerance to Heat Misc: All systems neg except as marked - Vitals Vitals: Last Vital Signs Temp 37 C 10/21/18 11:07 Pulse 98 10/21/18 11:07 Resp 18 10/21/18 11:07 BP 118/76 10/21/18 11:07 Pulse Ox 96 10/21/18 11:07 - Abnormal Lab Findings Abnormal Lab Findings: Abnormal Lab Results 10/21/18 10/21/18 Range/Units 05:15 05:15 WBC 12.7 H (4.0-10.5) K/mm3 RBC 3.81 L (4.2-5.4) M/mm3 Hgb 8.0 L (12.5-16.0) gm/dL Hct 26.1 L (37.0-47.0) % MCV 68.5 L (78-100) fl MCH 20.7 L (27-31) pg MCHC 30.3 L (32-36) g/dl RDW 18.9 H (11.5-14.0) % Immature Gran % (Auto) 2.10 H (0.001-0.429) % Immature Gran # (Auto) 0.27 H (0.000-0.0310) K/mm3 Neutrophils % 77.1 H (42-75.0) % Lymphocytes % 7.5 L (20-51) % Monocytes % 9.4 H (0.0-9) % Eosinophils % 3.5 H (0.0-3.0) % Neutrophils # 9.8 H (1.3-6.0) K/mm3 Lymphocytes # 0.95 L (1.5-3.5) k/mm3 Monocytes # 1.2 H (0.0-1.0) k/mm3 Est GFR (Non-Af Amer) 48 L (60-130) mL/min Random Glucose 122 H (70-110) mg/dL ALT 83 H (19-67) U/L Alkaline Phosphatase 368 H (50-170) U/L Total Protein 5.8 L (6.2-8.2) gm/dL Albumin 1.9 L (3.4-5.0) gm/dl - Exam Constitutional: Present: Alert, Oriented x3, Cooperative, Well developed, Well nourished ENT Exam: Present: normal ENT inspection, hearing grossly normal Neck: Present: non-tender, supple, normal inspection. Absent: lymphadenopathy (R), lymphadenopathy (L), thyromegaly Breasts: Present: Exam deferred Respiratory: Present: chest non-tender, lungs clear, no respiratory distress Cardiovascular/Chest: Present: normal peripheral pulses, regular rate, rhythm, no chest tenderness, no edema, no gallop, no JVD, no murmur Abdomen: Present: Normal bowel sounds, soft, nontender, nondistended, no hepatospenomegaly, no masses /Rectal: Present: Exam deferred Extremity: Present: normal inspection, no calf tenderness, normal capillary refill Skin Exam: Present: warm/dry, no cyanosis Lymphatic: Present: no adenopathy Neurologic: Present: abnormal gait. Absent: dizzy/light-headedness Appearance: Present: appropriate appearance, appropriate insight, neat Eye contact: Present: cooperative, good eye contact, normal speech Thoughts: Present: normal thought pattern Assessment/Plan Plan Narrative: She is now growing E. coli out of her urine and out of her blood. We will now add the diagnosis of sepsis. - Problems/Diagnosis (1) Pyelonephritis Problem: Acute (2) Fluid overload Problem: Resolved Qualifiers: Hypervolemia type: other Qualified Code(s): E87.79 - Other fluid overload (3) Sepsis Problem: Acute Qualifiers: Sepsis type: Escherichia coli Qualified Code(s): A41.51 - Sepsis due to Escherichia coli [E. coli] (4) Compensated metabolic acidosis Problem: Resolved (5) Elevated LFTs Problem: Acute (6) Altered mental status Problem: Resolved
[2018-10-21] MEDS: ZOLPIDEM TARTRATE 10 MG TABLET PO SCH (22:10)
[2018-10-22] MEDS: POTASSIUM CHLORIDE 10 MEQ in NORMAL SALINE 1,000 ML IV SCH (03:31)
[2018-10-22 05:40] LABS: Hematocrit 27.1 % (37.0-47.0); Hemoglobin 8.2 gm/dL (12.5-16.0); Mean Cell Volume 68.4 fl (78-100); Mean Corpuscular Hemoglobin 20.7 pg (27-31); Mean Corpuscular Hgb Conc 30.3 g/dl (32-36); Mean Platelet Volume 9.6 fl (8-12.5); Neutrophil # 9.4 K/mm3 (1.3-6.0); Neutrophil % 72.9 % (42-75.0); Platelet Count 304 K/mm3 (150-450); Red Blood Count 3.96 M/mm3 (4.2-5.4); Red Cell Distribution Width 18.9 % (11.5-14.0); White Blood Count 12.9 K/mm3 (4.0-10.5)
[2018-10-22 05:42] LABS: Anion Gap 12.6 mmol/L (6.8-13.8); BUN/Creatinine Ratio 14.6 (9.0-21.6); Bilirubin, Total 0.4 mg/dL (0.0-1.1); Ca. Corrected For Albumin 9.9 mg/dL (8.4-10.2); Calcium * 8.6 mg/dL (7.9-10.9); Carbon Dioxide 26.1 mmol/L (24-32.6); Potassium 3.7 mmol/L (3.4-4.6); Total Protein 5.9 gm/dL (6.2-8.2)
[2018-10-22] MEDS: PANTOPRAZOLE SODIUM 40 MG TABLET.EC PO SCH (06:39)
[2018-10-22] MEDS: ENOXAPARIN SODIUM 40 MG/0.4 ML SYRG SC SCH (06:40)
--- NOTE | 2018-10-22 07:05 | DS ---
(1) Pyelonephritis Diagnosis(s): Due to Escherichia coli Problem: Acute (2) Fluid overload Problem: Resolved Qualifiers: Hypervolemia type: other Qualified Code(s): E87.79 - Other fluid overload (3) Sepsis Diagnosis(s): Due to Escherichia coli Problem: Acute Qualifiers: Sepsis type: Escherichia coli Qualified Code(s): A41.51 - Sepsis due to Escherichia coli [E. coli] (4) Compensated metabolic acidosis Problem: Resolved (5) Elevated LFTs Problem: Resolved (6) Altered mental status Problem: Resolved Description of Stay: The patient was resuscitated with fluids upon admission. Blood cultures and a urine culture were obtained. She was started promptly on antibiotics. She remained quite ill originally but in the last couple of days especially she is improved. Now she is eating without difficulty and is up and around. She is steady on her feet, but her endurance is limited. She developed some fluid overload while the hospital, treated with one IV dose of Lasix and restriction of fluid intake is all within 24 hours. Vital signs are stable. Lab work is stable. Both urine and one blood culture grew Escherichia coli. Her prognosis is excellent. Procedures Performed: none Results and Findings: Pending Mircobiology Results 10/18/18 17:00 Blood Blood Culture - Preliminary NO GROWTH AFTER 48 HOURS Lab Pending Results 10/18/18 16:39: Urine Color Yellow, Urine Appearance Slightly cloudy, Urine pH 6.0, Ur Specific [place] 1.025, Urine Protein 100 H, Urine Glucose (UA) Negative, Urine Ketones Negative, Urine Blood 150 H, Urine Nitrate Negative, Urine Bilirubin 1 H, Urine Ictotest Positive H, Prot Sulfosalicylic Acd 4+ H, Urine Urobilinogen 8 H, Ur Leukocyte Esterase 100 H, Urine RBC 5-10 H, Urine WBC >50 H, Ur Epithelial Cells None seen, Urine Bacteria 4+ H, Urine Culture Comme nts Culture to follow 10/18/18 16:43: WBC 19.1 H, RBC 4.20, Hgb 8.8 L, Hct 29.3 L, MCV 69.8 L, MCH 21.0 L, MCHC 30.0 L, RDW 18.6 H, Plt Count 262, MPV 9.8, Immature Gran % (Auto) 1.00 H, Immature Gran # (Auto) 0.20 H, Neutrophils % 85.0 H, Neutrophils % (Manual) 82 H, Band Neuts % (Manual) 1, Lymphocytes % 2.8 L, Lymphocytes % (Manual) 8 L, Monocytes % 10.9 H, Monocytes % (Manual) 9, Eosinophils % 0.0, Basophils % 0.3, Nucleated RBC % 0.0, Neutrophils # 16.2 H, Neutrophils # (Manual) 15.7 H, Lymphocytes # 0.53 L, Lymphocytes # (Manual) 1.5, Monocytes # 2.1 H, Monocytes # (Manual) 1.7 H, Eosinophils # 0.0, Absolute Basophils 0.1, Platelet Estimate Normal, Hypochromasia 1+, Anisocytosis 2+, Ovalocytes 1+ 10/18/18 16:43: Sodium 133, Plasma Sodium 135, Potassium 3.5, Chloride 100, Carbon Dioxide 20.3 L, Anion Gap 16.2 H, BUN 16, Creatinine 1.26, Est GFR (Non- Af Amer) 44 L, BUN/Creatinine Ratio 12.7, Random Glucose 207 H, Calcium 8.4, Calcium Adj for Albumin 9.4, Total Bilirubin 2.2 H, AST 154 H, ALT 188 H, Alkaline Phosphatase 357 H, Total Protein 6.0 L, Albumin 2.4 L 10/18/18 16:43: Lactic Acid, Venous 1.5 10/19/18 05:10: WBC 18.9 H, RBC 4.07 L, Hgb 8.5 L, Hct 28.3 L, MCV 69.5 L, MCH 20.9 L, MCHC 30.0 L, RDW 18.6 H, Plt Count 284, MPV 10.6, Neutrophils % (Manual) 87 H, Band Neuts % (Manual) 3 H, Lymphocytes % (Manual) 5 L, Monocytes % (Manual) 5, Neutrophils # (Manual) 16.4 H, Lymphocytes # (Manual) 0.9 L, Monocytes # (Manual) 0.9, Platelet Estimate Normal, Hypochromasia 1+, Juan Miguel rocytosis 1+ 10/19/18 05:10: Sodium 135, Plasma Sodium 136, Potassium 3.0 L, Chloride 102, Carbon Dioxide 20.8 L, Anion Gap 15.2 H, BUN 17, Creatinine 1.46 H, Est GFR (Non-Af Amer) 37 L, BUN/Creatinine Ratio 11.6, Random Glucose 187 H, Calcium 8.2, Calcium Adj for Albumin 9.2, Total Bilirubin 2.2 H, AST 108 H, ALT 162 H, Alkaline Phosphatase 348 H, Total Protein 5.9 L, Albumin 2.3 L, Lipase 28 L 10/19/18 05:10: B-Natriuretic Peptide 1431 H 10/19/18 11:50: pCO2 28.1 L, pO2 80.9 L, HCO3 18.9 L, Total CO2 19.7, Base Excess -4.3 L, ABG pH 7.45, ABG O2 Sat (Measured) 96.5 10/20/18 05:34: WBC 14.9 H D, RBC 3.85 L, Hgb 8.1 L, Hct 27.6 L, MCV 71.7 L, MCH 21.0 L, MCHC 29.3 L, RDW 19.1 H, Plt Count 234, MPV 10.5, Immature Gran % (Auto) 0.90 H, Immature Gran # (Auto) 0.14 H, Neutrophils % 81.2 H, Neutrophils % (Manual) 82 H, Band Neuts % (Manual) 1, Lymphocytes % 5.8 L, Lymphocytes % (Manual) 13 L, Monocytes % 10.7 H, Monocytes % (Manual) 4, Eosinophils % 0.9, Basophils % 0.5, Nucleated RBC % 0.0, Neutrophils # 12.1 H, Neutrophils # (Manual) 12.2 H, Lymphocytes # 0.86 L, Lymphocytes # (Manual) 1.9, Monocytes # 1.6 H, Monocytes # (Manual) 0.6, Eosinophils # 0.1, Absolute Basophils 0.1, Dohle Bodies 1+, Platelet Estimate Normal 10/20/18 05:34: Sodium 137, Plasma Sodium 137, Potassium 3.6, Chloride 107 H, Carbon Dioxide 18.8 L, Anion Gap 14.8 H, BUN 18, Creatinine 1.25, Est GFR (Non- Af Amer) 44 L, BUN/Creatinine Ratio 14.4, Random Glucose 118 H D, Calcium 8.5, Calcium Adj for Albumin 9.8, Total Bilirubin 1.1, AST 56 H, ALT 111 H, Alkaline Phosphatase 364 H, Total Protein 5.7 L, Albumin 2.0 L 10/21/18 05:15: WBC 12.7 H, RBC 3.81 L, Hgb 8.0 L, Hct 26.1 L, MCV 68.5 L, MCH 20.7 L, MCHC 30.3 L, RDW 18.9 H, Plt Count 273, MPV 10.3, Immature Gran % (Auto) 2.10 H, Immature Gran # (Auto) 0.27 H, Neutrophils % 77.1 H, Lymphocytes % 7.5 L, Monocytes % 9.4 H, Eosinophils % 3.5 H, Basophils % 0.4, Nucleated RBC % 0.0, Neutrophils # 9.8 H, Lymphocytes # 0.95 L, Monocytes # 1.2 H, Eosinophils # 0.4, Absolute Basophils 0.1 10/21/18 05:15: Sodium 138, Plasma Sodium 138, Potassium 3.5, Chloride 105, Carbon Dioxide 24.1, Anion Gap 12.4, BUN 17, Creatinine 1.17, Est GFR (Non-Af Amer) 48 L, BUN/Creatinine Ratio 14.5, Random Glucose 122 H, Calcium 8.5, Calcium Adj for Albumin 9.9, Total Bilirubin 0.6, AST 34, ALT 83 H, Alkaline Phosphatase 368 H, Total Protein 5.8 L, Albumin 1.9 L 10/22/18 05:25: WBC 12.9 H, RBC 3.96 L, Hgb 8.2 L, Hct 27.1 L, MCV 68.4 L, MCH 20.7 L, MCHC 30.3 L, RDW 18.9 H, Plt Count 304, MPV 9.6, Immature Gran % (Auto) 3.40 H, Immature Gran # (Auto) 0.44 H, Neutrophils % 72.9, Lymphocytes % 8.8 L, Monocytes % 9.3 H, Eosinophils % 5.0 H, Basophils % 0.6, Nucleated RBC % 0.0, Neutrophils # 9.4 H, Lymphocytes # 1.13 L, Monocytes # 1.2 H, Eosinophils # 0.6, Absolute Basophils 0.1 10/22/18 05:25: Sodium 140, Plasma Sodium 140, Potassium 3.7, Chloride 105, Carbon Dioxide 26.1, Anion Gap 12.6, BUN 15, Creatinine 1.03, Est GFR (Non-Af Amer) 55 L, BUN/Creatinine Ratio 14.6, Random Glucose 120 H, Calcium 8.6, Calcium Adj for Albumin 9.9, Total Bilirubin 0.4, AST 22, ALT 59, Alkaline Phosphatase 345 H, Total Protein 5.9 L, Albumin 2.0 L Discharge Location: Home Disposition: Home self-care Condition: Good Discharge Activity: Activity as tolerated Discharge Diet: Low salt Referrals: Hardeep Patton MD [Primary Care Provider] - Additional Patient Instructions (free text): -Please make TCM appointment unless halfway discharge. Thank you! Abigail @ [phone]. The TCM appointment should be with me in about 10 days. Prescriptions (Any new or edited meds): Cephalexin 500 mg PO BID #28 cap Complete Home Medications List: Complete Home Medication List: Aspirin [Aspirin Enteric Coated] 81 mg PO DAILY 07/21/13 Furosemide [Lasix] 40 mg PO DAILY 10/29/17 Losartan Potassium [Cozaar] 50 mg PO DAILY 10/29/17 Potassium Chloride [Klor-Con 10] 30 meq PO DAILY 10/29/17 metFORMIN HCL [Metformin HCl] 500 mg PO HS 10/29/17 lancets 28 gauge See Dose Instructions .ROUTE .MEDSUPPLY #100 ea 04/20/18 fluoxetine 40 mg capsule 40 mg PO DAILY #30 cap 06/01/18 simvastatin 40 mg tablet 40 mg PO HS #90 tab 06/30/18 meloxicam 15 mg tablet 15 mg PO DAILY #30 tab 07/10/18 omeprazole 40 mg capsule,delayed release 40 mg PO DAILY #30 cap 07/10/18 triamcinolone acetonide 0.5 % topical cream 1 applic TP BID #15 g 07/10/18 zolpidem 10 mg tablet 10 mg PO HS #30 tab 07/29/18 solifenacin 10 mg tablet 10 mg PO DAILY #30 tab 10/19/18 Cephalexin 500 mg PO BID #28 cap 10/22/18 Spironolactone [Aldactone] 50 mg PO DAILY tab 10/22/18
[2018-10-22] MEDS: LOSARTAN POTASSIUM 50 MG TABLET PO SCH (09:21)
[2018-10-22] MEDS: SOLIFENACIN SUCCINATE 10 MG TABLET PO SCH (09:21)
[2018-10-22] MEDS: ASPIRIN 81 MG TABLET.DR PO SCH (09:21)
[2018-10-22] MEDS: SPIRONOLACTONE 25 MG TABLET PO SCH (09:22)
[2018-10-22] MEDS: FLUoxetine HCL 20 MG CAPSULE PO SCH (09:22)
[2018-10-22] MEDS: FUROSEMIDE 40 MG TABLET PO SCH (09:22)
[2018-10-22] MEDS: POTASSIUM CHLORIDE 10 MEQ TABLET.SA PO SCH (09:22)
[2018-10-22] MEDS: CEFEPIME HCL 1 GM in DEXTROSE 5 % IN WATER 100 ML IV SCH ×2 (09:22)
[2018-10-22] MEDS: TRIAMCINOLONE ACETONIDE 15 APPL TUBE TP SCH (09:22)
[2018-10-22 10:24] VITALS: BP 120/55
== END 2018-10-22 10:15 | disposition home or self-care (01) | DRG 689 ==
LOC: ER 16:27 → MS 18:11
PROVIDERS: ADMIT Family Medicine; ATTEND Allergy & Immunology
DX: N10 Acute pyelonephritis; B96.20 Unspecified Escherichia coli [E. coli] as the cause of diseases classified elsewhere; E87.79 Other fluid overload; E87.2 Acidosis; E78.5 Hyperlipidemia, unspecified; D64.9 Anemia, unspecified; E11.9 Type 2 diabetes mellitus without complications; A41.51 Sepsis due to Escherichia coli [E. coli]; I50.9 Heart failure, unspecified; R94.5 Abnormal results of liver function studies; R41.82 Altered mental status, unspecified; I10 Essential (primary) hypertension
CPT/HCPCS: 36415; 36600; 71020; 71046; 76705; 80053; 81001; 82803; 83519; 83605; 83690; 83880; 85007; 85025; 87040; 87077; 87081; 87086; 87186; 90686; 96361; 99285